=== PATIENT | female | born 1990 | race Caucasian/White ===

== ENCOUNTER 2016-08-05 17:57 | Emergency (ER) | payer OTHER ==
[~2016-08-05 17:57] MED LIST: IBUPROFEN800 MG PO; PERCOCET 325 MG1 TA2 PO; PRENATAL VITAMI1 TA4 PO
--- NOTE | 2016-08-05 18:14 | ED INFLUENZA/URI COMPLAINT ---
History of Present Illness General Chief Complaint: General Adult Stated Complaint: PT 32 WEEKS TESTED POS FOR FLU Source: patient, old records Exam Limitations: no limitations Vital Signs & Intake/Output Vital Signs & Intake/Output Vital Signs Date Time Temp Pulse Resp B/P Pulse O2 O2 Flow FiO2 Ox Delivery Rate 08/05 1930 99.5 16 99 Room Air Room Air 08/05 1919 98.9 08/05 1838 104.0 110 16 114/64 98 Room Air Room Air Allergies Coded Allergies: NO KNOWN ALLERGIES (08/05/16) Reconcile Medications Ibuprofen 800 MG TABLET 800 MG PO Q6P PRN PAIN SCALE 4-6 Ondansetron (Zofran Odt) 4 MG TAB.RAPDIS 1 TAB SL TID PRN nausea OXYCODONE HCL/ACETAMINOPHEN (Percocet 5-325 MG Tablet) 325 MG/5 MG TAB 1 TAB PO Q3P PRN PAIN SCALE 7-10 [id number] ( Vitamins) 1 TAB TAB 1 TAB PO DAILY VITAMIN SUPPORT Triage Nurses Notes Reviewed? yes Onset: Abrupt Duration: day(s): (5), constant Timing: recent history Severity: mild, moderate Severity Numbers: 5 No Modifying Factors: none Associated Symptoms: cough, muscle aches, nasal congestion, nasal drainage, fever HPI: 25-year-old female 32 weeks presents to emergency room sent in by her automatic equipment technician for evaluation. The patient states that diagnosed with the flu 5 days ago and is currently taking Tamiflu. She states that the fevers nausea and vomiting has persisted. The patient denies any abdominal pain vaginal bleeding or discharge. She denies any palpitations to this , she is . her last Dose of Tylenol was yesterday and she presents with a temperature of 104 tympanically. No headache, no urinary symptoms no shortness of breath no chest pain. She reports a nonproductive cough and rhinorrhea congestion. There are no modifying factors or associated symptoms. (DEE DEE SOFIA) Past History Travel History Traveled to [place] past 21 day No Medical History Any Pertinent Medical History? none Surgical History Surgical History: history of PFO dxd at age 15. pt reports seen by test boring crew chief and did not require follow up. Psychosocial History What is your primary language Azeri Family History Hx Contributory? No (DEE DEE SOFIA) Review of Systems Review of Systems Constitutional: Reports: see HPI. All Other Systems: Reviewed and Negative Comments Review of systems: See HPI, All other systems negative. Constitutional, no chills fever, no malaise HEENT: No visual changes no sore throat congestion, no ear pain Cardiovascular: No chest pain , no palpitation Skin, no jaundice no rashes, no change in skin Respiratory: No dyspnea cough no sputum no hemoptysis GI: No nausea no vomiting, no diarrhea, : No dysuria No hematuria, no frequency, no discharge Muscle skeletal: No joint pain, no back pain, no neck pain, Neurologic: No numbness no headache Psych: No stress Heme/endocrine: No bruising no bleeding Immunology: No lymphadenopathy (JENSEN MENDEZ,DEE DEE) Physical Exam Physical Exam General Appearance: well developed/nourished, alert, awake Ears, Nose, Throat: normal ENT inspection, moist mucous membrane, hearing grossly normal, Tympanic normal Comments: Well-developed well-nourished person in no acute distress Head/Face: Atraumatic, no maxillary/frontal sinus tenderness, no facial swelling Eyes: PERRL, EOMI, no conjunctival injection. No nystagmus Ear:External auditory canal and Tympanic membranes clear, no erythema, no FB. Nose: atraumatic.Normal inspection: No bleeding, no septal hematoma Throat: Moist mucous membranes.Pharynx normal. No pharyngeal erythema/exudate seen. No stridor/drooling or assymetry. No swelling or edema. Neck: Supple, no lymphadenopathy, FROM Back: Nontender, no CVA tenderness. Full range of motion Cardiovascular: Regular rate and rhythms no murmurs rubs or gallops, normal JVP Respiratory: Chest nontender.There were no bony deformities, no asymmetry. No respiratory distress. Patient speaking in full complete sentences. Breath sounds clear to auscultation bilaterally: NO W/R/R Abdomen: Soft, nontender nondistended, no appreciable organomegaly. Normal bowel sounds. No rebound/guarding, No appreciable enlargement of the abdominal aorta, No ascites. Extremity: No edema, full range of motion of extremities, normal and equal pulses bilaterally, 5 out of 5 strength noted to bilateral upper and lower extremities Neuro: Alert oriented x3, motor sensory normal, cranial nerves II through XII grossly intact. There were no obvious focal neurologic abnormalities. Skin: No appreciable rash on exposed skin, skin is warm and dry. Psych: Mood and affect is normal, memory and judgment is normal. Core Measures Severe Sepsis Present: No Septic Shock Present: No (DEE DEE SOFIA) Progress Differential Diagnosis: influenza, otitis, pneumonia, pharyngitis, sinusitis, bronchitis, dehydration, uti, pyelo, intrauterine preg Initial ED EKG: none (DEE DEE SOFIA) Plan of Care: Orders Procedure Date/time Status COMPREHENSIVE METABOLIC PANEL 08/05 1823 Complete CBC WITHOUT DIFFERENTIAL 08/05 1823 Complete Laboratory Tests 08/05/16 1853: Anion Gap 16, Estimated GFR > 60, BUN/Creatinine Ratio 7.8, Glucose 81, Calcium 8.4, Total Bilirubin 1.1, AST 25, ALT 26, Alkaline Phosphatase 127 H, Total Protein 6.5, Albumin 3.2 L, Globulin 3.3, Albumin/Globulin Ratio 1.0 L, CBC w Diff NO MAN DIFF REQ, RBC 3.85 L, MCV 80.2 L, MCH 26.8 L, RDW 14.1, MPV 8.8, Gran % 85.5 H, Lymphocytes % 5.4 L, Monocytes % 8.8, Eosinophils % 0, Basophils % 0.3, Absolute Granulocytes 15.5 H, Absolute Lymphocytes 1.0 L, Absolute Monocytes 1.6 H, Absolute Eosinophils 0, Absolute Basophils 0.1, PUBS MCHC 33.5 labs ordered, old records revieweed. pt medicated with tylenol, zofran iv fluids. case d/w dr mcdaniel who evaluated the pt and agrees with plan Bedside ultrasound transabdominally was performed by me. heart tones 160. good movement. 08/05/2016 7:56:15 PM on repeat eval patient is resting comfortable he tolerated by mouth challenge discussed directly over lab results including her elevated white blood cell count. Patient feels improved with 2 L of fluid Tylenol repeat temperature 99.5 tolerating by mouth challenge discussed with her close follow- up as needed with Dr. Hawkins. Advised return anytime sooner for symptoms redevelop or she has any other concerns. They feel comfortable this plan cleared for discharge (DEE DEE SOFIA) Departure Departure Time of Disposition: 1954 Disposition: HOME OR SELF CARE Condition: Stable Clinical Impression Primary Impression: Influenza Secondary Impressions: Referrals: RADHA PAIZ,SUDHAKAR Silva Additional Instructions: Zofran for nausea. Continue taking the Tamiflu as previously directed. Follow- up with your automatic equipment technician this week, bland diet clear liquids advance as tolerated. Return immediately if you have worsening of your symptoms or any other concerns. Tylenol every 8 hours Departure Forms: Customer Survey General Discharge Information Prescriptions: Current Visit Scripts Ondansetron (Zofran Odt) 1 TAB SL TID PRN nausea #10 TAB (DEE DEE SOFIA) PA/ASSOCIATE ART DIRECTOR Co-Sign Statement Statement: ED Attending supervision documentation- [X] I saw and evaluated the patient. I have also reviewed all the pertinent lab results and diagnostic results. I agree with the findings and the plan of care as documented in the PA's/ASSOCIATE ART DIRECTOR's documentation. [] I have reviewed the ED Record and agree with the PA's/ASSOCIATE ART DIRECTOR's documentation. [] Additions or exceptions (if any) to the PAs/ASSOCIATE ART DIRECTOR's note and plan are summarized below: [] (ABIGAIL PAIZ,MORIS García) ED Attending Observation Initial Observation Note: I have seen and personally examined ZULEYMA CASTRO on 08/05/16 at 2002. I agree with the current emergency department documentation. The disposition (admission or discharge) is uncertain at this time, she needs a period of observation for the following reason(s): The ED Nurse caring for this patient has been personally informed as to what the patient is being observed for. (DEE DEE SOFIA)
[2016-08-05 18:39] VITALS: BP 114/64
[2016-08-05 19:08] LABS: ABSOLUTE BASOPHIL COUNT 0.1 /CUMM (0.0-0.2); ABSOLUTE EOSINOPHIL COUNT 0 /CUMM (0.0-0.7); ABSOLUTE GRANULOCYTE CT 15.5 /CUMM (1.4-6.5); ABSOLUTE MONOCYTE COUNT 1.6 /CUMM (0.10-0.60); BASOPHIL % 0.3 % (0.0-2.0); EOSINOPHIL % 0 % (0-5); HEMATOCRIT 30.9 % (37-47); MEAN CORPUSCULAR HGB 26.8 PG (27.0-31.0); MEAN CORPUSCULAR HGB CONC 33.5 G/DL (33.0-37.0); MEAN CORPUSCULAR VOLUME 80.2 FL (81.0-99.0); MEAN PLATELET VOLUME 8.8 FL (7.4-10.4); PLATELET COUNT 201 /CUMM (130-400); RBC DISTRIBUTION WIDTH 14.1 % (11.5-14.5); RED BLOOD CELL CT 3.85 /CUMM (4.20-5.40); WHITE BLOOD CELL COUNT 18.1 /CUMM (4.8-10.8)
[2016-08-05 19:11] LABS: GRANULOCYTE % 85.5 % (42.2-75.2)
[2016-08-05] MEDS ORDERED: ZOFRAN ODT4 M1 SL (19:56)
== END 2016-08-05 20:17 ==
LOC: ERH 17:57
PROVIDERS: Physician Assistant Medical
DX: O99.513 Diseases of the respiratory system complicating pregnancy, third trimester (principal); J11.1 Influenza due to unidentified influenza virus with other respiratory manifestations; Z3A.32 32 weeks gestation of pregnancy
CPT/HCPCS: 96374; 96375; J0131; J2405

== ENCOUNTER 2016-09-08 19:22 | Inpatient (IN) | payer OTHER ==
[~2016-09-08] VITALS: Ht 172.7 cm; Wt 104.3 kg
[~2016-09-08 19:22] MED LIST changes: +ZOFRAN ODT4 M1 SL
[2016-09-08 21:33] LABS: ABSOLUTE BASOPHIL COUNT 0 /CUMM (0.0-0.2); ABSOLUTE EOSINOPHIL COUNT 0 /CUMM (0.0-0.7); ABSOLUTE GRANULOCYTE CT 16.3 /CUMM (1.4-6.5); ABSOLUTE LYMPH COUNT 1.3 /CUMM (1.2-3.4); ABSOLUTE MONOCYTE COUNT 1.1 /CUMM (0.10-0.60); BASOPHIL % 0.1 % (0.0-2.0); EOSINOPHIL % 0.1 % (0-5); HEMATOCRIT 27.4 % (37-47); MEAN CORPUSCULAR HGB 25.8 PG (27.0-31.0); MEAN CORPUSCULAR HGB CONC 32.4 G/DL (33.0-37.0); MEAN CORPUSCULAR VOLUME 79.5 FL (81.0-99.0); MEAN PLATELET VOLUME 8.1 FL (7.4-10.4); PLATELET COUNT 231 /CUMM (130-400); RBC DISTRIBUTION WIDTH 16.2 % (11.5-14.5); RED BLOOD CELL CT 3.44 /CUMM (4.20-5.40); WHITE BLOOD CELL COUNT 18.7 /CUMM (4.8-10.8)
[2016-09-08 21:34] LABS: GRANULOCYTE % 87.3 % (42.2-75.2)
--- NOTE | 2016-09-09 05:34 | Cons- Medical ---
KATHERINE MARTINEZ 09/09/16 0528: General Information and HPI Consulting Request Date of Consult: 09/09/16 Requested By: MALISSA PRADO MD Reason for Consult: Fever Source of Information: patient Exam Limitations: no limitations History of Present Illness: She is 25-year-old woman A2 at 37+4 weeks with past medical history of iron deficiency anemia, history of genital herpes intermittently on Valtrex, recent outbreak 2 months ago. She presented with complaint of nausea, abdominal cramps and back pain for last 2 days. She also reports having fever. MAXIMUM TEMPERATURE 101. She also complains of headache, sore throat and dry cough. She denies any sinus or chest congestion, wheezing, breathing difficulty, chest pain or discomfort, vomiting, diarrhea or constipation. She admits going to bathroom to urinate more frequently but denies any pain or burning upon micturition. She lives with her . Has 2 kids. Does not have any allergies. Surgical history includes only wisdom tooth removal. She denies smoking, drinking alcohol or use of recreational drugs. 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 Allergies/Medications Allergies: Coded Allergies: NO KNOWN ALLERGIES (08/05/16) Home Med List: Ibuprofen 800 MG TABLET 800 MG PO Q6P PRN PAIN SCALE 4-6 Ondansetron (Zofran Odt) 4 MG TAB.RAPDIS 1 TAB SL TID PRN nausea OXYCODONE HCL/ACETAMINOPHEN (Percocet 5-325 MG Tablet) 325 MG/5 MG TAB 1 TAB PO Q3P PRN PAIN SCALE 7-10 [id number] ( Vitamins) 1 TAB TAB 1 TAB PO DAILY VITAMIN SUPPORT Current Medications: Current Medications Sig/Kamala Start time Last Medication Dose Route Stop Time Status Admin Acetaminophen 1,000 MG Q6P PRN 09/09 0300 CAN N/A 1 UNIT IV Acetaminophen 650 MG Q4P PRN 09/09 0130 AC PO Acetaminophen 1,000 MG .STK-MED ONE 09/08 2049 DC IV 09/08 2050 Ampicillin 2,000 MG Q6 09/08 2359 DC 09/08 Sodium Chloride 100 ML IV 2301 Ceftriaxone Sodium 1,000 MG 0800 09/09 0800 AC IV Hydroxyzine HCl 100 MG ONCE ONE 09/08 2245 DC PO 09/08 2246 Lactated Ringer's 1,000 ML Q8H 09/09 0630 AC IV Sodium Chloride 1,000 ML ONCE ONE 09/085 AC 09/08 IV 09/09 0644 2213 Review of Systems Review of Systems Constitutional: Reports: see HPI. 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 pt reports seen by finishing range operator and did not require follow up. Psychosocial History Where Do You Live? Home Services at Home: None Smoking Status: Never Smoked ETOH Use: denies use Illicit Drug Use: denies illicit drug use Functional Ability ADLs Independent: dressing, eating, toileting, bathing. Exam & Diagnostic Data Last 24 Hrs of Vital Signs/I&O none Physical Exam General Appearance: well developed/nourished, no apparent distress, alert, awake , comfortable, Ears, Nose, Throat: normal pharynx Neck: normal inspection Respiratory: normal breath sounds, lungs clear Cardiovascular: tachycardia Gastrointestinal: non-tender, belly Back: normal inspection, CVA tenderness (L) Extremities: no edema Other Physical Findings: Mild dermatitis inner side of upper thigh Last 24 Hrs of Labs/Vitaly: Laboratory Tests 09/09/16 0430: Lactic Acid 0.8 09/08/162119: Anion Gap 9, Estimated GFR > 60, BUN/Creatinine Ratio 10.0, Glucose 146 H, Calcium 8.6, Total Bilirubin 0.4, Direct Bilirubin 0.3, AST 16, ALT 21, Alkaline Phosphatase 110, Total Protein 5.7 L, Albumin 2.7 L, CBC w Diff NO MAN DIFF REQ, RBC 3.44 L, MCV 79.5 L, MCH 25.8 L, RDW 16.2 H, MPV 8.1, Gran % 87.3 H , Lymphocytes % 6.9 L, Monocytes % 5.6, Eosinophils % 0.1, Basophils % 0.1, Absolute Granulocytes 16.3 H, Absolute Lymphocytes 1.3, Absolute Monocytes 1.1 H, Absolute Eosinophils 0, Absolute Basophils 0, PUBS MCHC 32.4 L 09/08/16 194: Urine Color STRAW, Urine Clarity CLEAR, Urine pH 6.5, Ur Specific [place] 1.010, Urine Protein NEG, Urine Ketones 40 H, Urine Nitrite NEG, Urine Bilirubin NEG, Urine Urobilinogen 0.2, Ur Leukocyte Esterase MOD H, Ur Microscopic SEDIMENT EXAMINED, Urine RBC RARE, Urine WBC 5-10 H, Ur Epithelial Cells RARE, Urine Bacteria FEW H, Urine Hemoglobin SMALL H, Urine Glucose NEG Microbiology 09/09 0215 NASOPHARYN: Influenza Virus A & B Rapid Smear - COMP Assessment/Plan Assessment/Plan She is 25-year-old woman A2 at 37+4 weeks with past medical history of iron deficiency anemia, history of genital herpes intermittently on Valtrex, recent outbreak 2 months ago. She was found to be febrile. MAXIMUM TEMPERATURE 100 here in hospital. Pertinent labs are WBC 18.7, H&H 8.9/27.4, sodium 133, potassium 3.4, glucose 146. UAs showing moderate urine leukocyte esterase and 5-10 urine WBCs. In hospital she was given IV fluids and started on ampicillin. Based on history and physical exam it seems like she is having a urinary tract infection and possible pyelonephritis. Plan * Follow vitals closely * Follow-up blood and urine culture * Please start patient on IV ceftriaxone for broader coverage if ok with STEWARD/STEWARDESS ROOM * Tylenol as needed for fever * Get Renal ultrasound to rule out pyelonephritis * Continue IV hydration Problem List: 1. UTI (urinary tract infection) Consult Acknowledgment - Thank you for your consult request. ELIZABET GOLDSTEIN 09/09/16 0612: Assessment/Plan Consult Acknowledgment - Thank you for your consult request. Attending MD Review Statement Attending Statement Attending MD Statement: examined this patient, discuss w/resident/PA/SWITCHBOARD CLERK, agreed w/resident/PA/SWITCHBOARD CLERK, discussed with family, reviewed EMR data (avail), reviewed images, amended to note Attending Assessment/Plan: Patient came for nausea, abdominal cramping, back pain and was being observed. Patient developed fever of 101, tachycardia. ROS is significant for mild cough without sputum production, no chest congestion no URI symptoms mild sore throat, urinary frequency, but no burning or irritation. On examination a O 3, anxious no distress, neck supple, no lymphadenopathy, no pharyngeal congestion, mucosa moist CVS: S1-S2, tachycardia RS: Clear to auscultate bilaterally throughout lung cheung. Abdomen: No significant right upper quadrant tenderness, but patient has left CVA tenderness. No pedal edema, no obvious skin rashes or inflammation, no focal neurological deficit Labs: WBC 18.7 with neutrophils 87%, hemoglobin 8.9. UA positive for moderate leukocyte esterase, few bacteria and WBC. A and P #1 fever : Suspect UTI with pyelonephritis given she has significant leukocytosis, left CVA tenderness, UA suggestive of UTI. Suggest renal ultrasound, an IV ceftriaxone if okay with ST[facility]ARD/STEWARDESS ROOM. Patient's blood culture, urine culture should be sent, obtain LFT, lactic acid, continue IV hydration. Flu test is negative, no obvious pharyngeal congestion, nasal congestion or any lymphadenopathy, chest is clear to auscultate.
[2016-09-09 08:16] VITALS: BP 100/60
--- NOTE | 2016-09-09 11:39 | ULTRASOUND REPORT ---
EXAMINATION: US RETROPERITONEAL COMPLETE (RENAL) CLINICAL INFORMATION: Flank pain and fever at 37 weeks of . COMPARISON: None TECHNIQUE: Real-time imaging of the kidneys and bladder. FINDINGS: RIGHT KIDNEY: 13.2 x 6.1 x 6.7 cm (SAG x AP x TRV). The kidney has normal cortical thickness and echotexture with well-preserved corticomedullary differentiation. No focal parenchymal lesion. Yyxw-ah-brkffsqo hydronephrosis is present without evidence of nephrolithiasis. LEFT KIDNEY: 13.6 x 6.7 x 5.4 cm (SAG x AP x TRV). The kidney has normal cortical thickness and echotexture with well-preserved corticomedullary differentiation. No focal lesion. Ffmf-co-rklntjzw hydronephrosis is present. There is a 0.4 cm calculus of the mid kidney. BLADDER: The dome of the urinary bladder is compressed by the gravid uterus. Both ureteral jets are seen. The heart rate is 122 bpm. IMPRESSION: 1. No sonographic evidence of renal abscess. The corticomedullary differentiation of each kidney is well-preserved. 2. Kxac-wz-zbbhwcvx bilateral hydronephrosis, probably due to compression of each distal ureter by the gravid uterus. 3. Both ureteral jets are seen within the bladder. 4. Nonobstructing 0.4 cm calculus is present within the mid left kidney.
--- NOTE | 2016-09-09 16:17 | History & Physical ---
General Information and HPI MD Statement: I have seen and personally examined ZULEYMA CASTRO and documented this H&P. The patient is a 25 year old female at [37] weeks and 4] days gestation who presented with a chief complaint of [back pain]. Source of Information: patient, old records Exam Limitations: no limitations History of Present Illness: She is 25-year-old woman A2 at 37+4 weeks with past medical history of iron deficiency anemia, history of genital herpes intermittently on Valtrex, recent outbreak 2 months ago.Pt has a Hx. of ER visit earlier in for similar complaints She presented with complaint of nausea, abdominal cramps and back pain for last 2 days. She also reports having fever. MAXIMUM TEMPERATURE 101. She also complains of headache, sore throat and dry cough. Allergies/Medications Allergies: Coded Allergies: NO KNOWN ALLERGIES (08/05/16) Home Med list Ibuprofen 800 MG TABLET 800 MG PO Q6P PRN PAIN SCALE 4-6 Ondansetron (Zofran Odt) 4 MG TAB.RAPDIS 1 TAB SL TID PRN nausea OXYCODONE HCL/ACETAMINOPHEN (Percocet 5-325 MG Tablet) 325 MG/5 MG TAB 1 TAB PO Q3P PRN PAIN SCALE 7-10 [id number] ( Vitamins) 1 TAB TAB 1 TAB PO DAILY VITAMIN SUPPORT Past History monogram technician History : 5 Para: 2 Last Menstrual Period: 12/21/2015 Estimated Delivery Date: 09/26/2016 Past monogram technician History: none, uncomplicated Past Pregnancies Past Pregnancies: 1 Date of Delivery: 01/2010 Gestational Age: 40 Length of Labor: 4h Weight: 7#13oz Type of Delivery: vaginal () Anesthesia: epidural Place of Delivery: [facility] Complications: none Past Pregnancies: 2 Date of Delivery: 01/03/2015 Gestational Age: 40 Length of Labor: 10h Weight: 9#5oz Type of Delivery: vaginal () Anesthesia: epidural Place of Delivery: [facility] Complications: none Medical History Blood 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 pt reports seen by staff mechanical engineer and did not require follow up. Past Family/Social History Psychosocial History Where do you live? Home Who Do You Live With? spouse Smoking Status: Never Smoked ETOH Use: denies use Illicit Drug Use: denies illicit drug use Review of Systems Review of Systems Constitutional: Reports: chills, fever, malaise. EENTM: Reports: no symptoms. Cardiovascular: Reports: no symptoms. Respiratory: Reports: no symptoms. Genitourinary: Reports: frequency, urgency. Exam & Diagnostic Data Last 24 Hrs of Vital Signs/I&O Vital Signs Date Time Temp Pulse Resp B/P Pulse O2 O2 Flow FiO2 Ox Delivery Rate 09/09 1236 100.9 09/09 1010 98.0 09/09 0816 100/60 09/09 0130 100.5 Intake & Output 09/09 1600 09/09 0800 09/09 0000 Intake Total Output Total Balance Patient 230 lb Weight Obstetric Exam Wgt Gained During : 20 Pelvimetry: ok Dilation (cm): 1 Effacement (%): 50 Station: -3 Membranes: intact Fluid: unknown Fundal Height (cm): 37 Multiple Gestation? No Contractions: none Patient for Induction? No Physical Exam General Appearance Alert, Oriented X3, Cooperative, Mild Distress Skin No Rashes HEENT Atraumatic, PERRLA, EOMI, Mucous Membr. moist/pink Neck Supple Cardiovascular Regular Rate Lungs Clear to Auscultation Abdomen Normal Bowel Sounds, Soft, No Tenderness (bilateral CVAT L>R) Neurological Normal Gait, Normal Speech Labs Blood Type & Rh: O+ Antibody Screen: neg Hct/Hgb & Platelets #1: 8.9/27.4/231 Hct/Hgb & Platelets #2: pending Rubella: imm VDRL #1: nr VDRL #2: nr HbsAg: nr HIV #1: nr HIV #2 nr 1 Hr PG: wnl Group B Strep: pending Initial Ultrasound: 02/27/2016 Anatomy Ultrasound: 05/20/2016 Genetic Testing: cf neg Last 24 Hrs of Labs/Vitaly: Tmax 101.9 temp 100.9 BP 100/58 Laboratory Tests 09/09/16 0430: Lactic Acid 0.8 09/08/16 2120: Anion Gap 9, Estimated GFR > 60, BUN/Creatinine Ratio 10.0, Glucose 146 H, Calcium 8.6, Total Bilirubin 0.4, Direct Bilirubin 0.3, AST 16, ALT 21, Alkaline Phosphatase 110, Total Protein 5.7 L, Albumin 2.7 L, CBC w Diff NO MAN DIFF REQ, RBC 3.44 L, MCV 79.5 L, MCH 25.8 L, RDW 16.2 H, MPV 8.1, Gran % 87.3 H , Lymphocytes % 6.9 L, Monocytes % 5.6, Eosinophils % 0.1, Basophils % 0.1, Absolute Granulocytes 16.3 H, Absolute Lymphocytes 1.3, Absolute Monocytes 1.1 H, Absolute Eosinophils 0, Absolute Basophils 0, PUBS MCHC 32.4 L 09/08/161944: Urine Color STRAW, Urine Clarity CLEAR, Urine pH 6.5, Ur Specific [place] 1.010, Urine Protein NEG, Urine Ketones 40 H, Urine Nitrite NEG, Urine Bilirubin NEG, Urine Urobilinogen 0.2, Ur Leukocyte Esterase MOD H, Ur Microscopic SEDIMENT EXAMINED, Urine RBC RARE, Urine WBC 5-10 H, Ur Epithelial Cells RARE, Urine Bacteria FEW H, Urine Hemoglobin SMALL H, Urine Glucose NEG Microbiology 09/09 0215 NASOPHARYN: Influenza Virus A & B Rapid Smear - COMP 09/08 2244 BLOOD: Blood Culture - RES GRAM NEGATIVE RODS 09/08 2229 BLOOD: Blood Culture - RES 09/08 1944 URINE ROUT: Urine Culture - RES GRAM NEGATIVE RODS Assessment/Plan Assessment/Plan: pt with pyleonephritis us shows small 4mm left calculus no abscess bilateral mod hydronephrosis. urine + 100k GNR Blood + GNR first Lactic acid 0.8 influenza negative As Ranked By This Provider Problem List: 1. 2. UTI (urinary tract infection) Core Measures/Miscellaneous Venous Thromboembolism VTE Risk Factors: / VTE Contraindications: No Contraindications VTE Prophylaxis Ordered Inpt: Early Ambulation VTE Diagnosis: No Beta Ramses Is Beta Ramses a Home Med? No Antibiotics Is Patient on Antibiotics? Yes Attending MD Review Statement Attending Statement Attending MD Statement: examined this patient, discussed with family, discussed w/nursing Attending Assessment/Plan: Pylo positive BC X1 GNR ATU consult recommends iv abx till afebrile x 48 hours then PO x 2 weeks medicine consult ID consult
--- NOTE | 2016-09-09 18:03 | PN- Att Addend ---
Attending Addendum Attending Brief Note S: Patient does note some left flank pain. No h/o UTI's. Still with fever. O: VS: Vital Signs Date Time Temp Pulse Resp B/P Pulse O2 O2 Flow FiO2 Ox Delivery Rate 09/09 1642 100.5 09/09 1236 100.9 09/09 1010 98.0 09/09 0816 100/60 09/09 0130 100.5 Intake & Output 09/09 1600 09/09 0800 09/09 0000 Intake Total Output Total Balance Patient 104.326 kg Weight Current Medications Sig/Kamala Start time Last Medication Dose Route Stop Time Status Admin Acetaminophen 1,000 MG Q6P PRN 09/09 0300 CAN N/A 1 UNIT IV Acetaminophen 650 MG Q4P PRN 09/09 0130 AC 09/09 PO 1642 Acetaminophen 1,000 MG .STK-MED ONE 09/08 2050 DC IV 09/08 2051 Ampicillin 2,000 MG Q6 09/08 2359 DC 09/08 Sodium Chloride 100 ML IV 2301 Ceftriaxone Sodium 1,000 MG 0800 09/09 0800 AC 09/09 IV 0804 Hydroxyzine HCl 100 MG ONCE ONE 09/08 2245 DC PO 09/08 2246 Lactated Ringer's 1,000 ML Q8H 09/09 0630 DC 09/09 IV 0733 Sodium Chloride 1,000 ML Q6H 09/09 1600 AC 09/09 IV 1630 Sodium Chloride 1,000 ML ONCE ONE 09/08 2245 DC 09/08 IV 09/09 0644 2213 Valacyclovir HCl 500 MG DAILY 09/09 1001 AC 09/09 PO 1137 Physical Exam: Chest: clear Cor: RRR, nl S1, S2 w/o murm Abd: , ?left CVAT Ext: no sig edema Labs: Laboratory Tests 09/09/16 1638: Lactic Acid 1.2 09/09/16 0430: Lactic Acid 0.8 09/08/16 2120: Anion Gap 9, Estimated GFR > 60, BUN/Creatinine Ratio 10.0, Glucose 146 H, Calcium 8.6, Total Bilirubin 0.4, Direct Bilirubin 0.3, AST 16, ALT 21, Alkaline Phosphatase 110, Total Protein 5.7 L, Albumin 2.7 L, CBC w Diff NO MAN DIFF REQ, RBC 3.44 L, MCV 79.5 L, MCH 25.8 L, RDW 16.2 H, MPV 8.1, Gran % 87.3 H , Lymphocytes % 6.9 L, Monocytes % 5.6, Eosinophils % 0.1, Basophils % 0.1, Absolute Granulocytes 16.3 H, Absolute Lymphocytes 1.3, Absolute Monocytes 1.1 H, Absolute Eosinophils 0, Absolute Basophils 0, PUBS MCHC 32.4 L 09/08/161944: Urine Color STRAW, Urine Clarity CLEAR, Urine pH 6.5, Ur Specific [place] 1.010, Urine Protein NEG, Urine Ketones 40 H, Urine Nitrite NEG, Urine Bilirubin NEG, Urine Urobilinogen 0.2, Ur Leukocyte Esterase MOD H, Ur Microscopic SEDIMENT EXAMINED, Urine RBC RARE, Urine WBC 5-10 H, Ur Epithelial Cells RARE, Urine Bacteria FEW H, Urine Hemoglobin SMALL H, Urine Glucose NEG Microbiology 09/09 214 NASOPHARYN: Influenza Virus A & B Rapid Smear - COMP Microbiology Date/Time Procedure - Status Source Growth 09/09 214 Influenza Virus A & B Rapid Smear - COMP NASOPHARYN 09/08 2244 Blood Culture - RES BLOOD GRAM NEGATIVE RODS 09/08 2229 Blood Culture - RES BLOOD 09/08 1944 Urine Culture - RES URINE ROUT GRAM NEGATIVE RODS Renal US: IMPRESSION: 1. No sonographic evidence of renal abscess. The corticomedullary differentiation of each kidney is well-preserved. 2. [id number] bilateral hydronephrosis, probably due to compression of each distal ureter by the gravid uterus. 3. Both ureteral jets are seen within the bladder. 4. Nonobstructing 0.4 cm calculus is present within the mid left kidney. Impression/Plan: #UTI with Sepsis of Urologic Origin- lactate level normal. GNR's in blood and urine (>100K). Patient on Ceftriaxone. No h/o UTI's previously. No evidence of pyelonephritis on US. Some compression of ureters by gravid uterus noted. Plan: Continue Ceftriaxone. Await final culture results. Continue hydration.
[2016-09-10 06:29] LABS: ABSOLUTE BASOPHIL COUNT 0 /CUMM (0.0-0.2); ABSOLUTE EOSINOPHIL COUNT 0.1 /CUMM (0.0-0.7); ABSOLUTE GRANULOCYTE CT 14.8 /CUMM (1.4-6.5); ABSOLUTE LYMPH COUNT 1.8 /CUMM (1.2-3.4); ABSOLUTE MONOCYTE COUNT 1.3 /CUMM (0.10-0.60); BASOPHIL % 0.2 % (0.0-2.0); EOSINOPHIL % 0.4 % (0-5); GRANULOCYTE % 82.2 % (42.2-75.2); HEMATOCRIT 25.8 % (37-47); MEAN CORPUSCULAR HGB 26.1 PG (27.0-31.0); MEAN CORPUSCULAR HGB CONC 32.9 G/DL (33.0-37.0); MEAN CORPUSCULAR VOLUME 79.5 FL (81.0-99.0); MEAN PLATELET VOLUME 8.3 FL (7.4-10.4); PLATELET COUNT 214 /CUMM (130-400); RED BLOOD CELL CT 3.25 /CUMM (4.20-5.40)
--- NOTE | 2016-09-10 08:00 | PN- Medicine Consult ---
See Addendum NAFISA MORRISON 09/10/16 0759: Assessment/Plan Assessment/Plan Assessment: 25-year-old woman A2 at 37+4 weeks with past medical history of iron deficiency anemia, history of genital herpes intermittently on Valtrex, recent outbreak 2 months ago. She presented with complaint of nausea, abdominal cramps and back pain with fevers, currently being treated for UTI. Plan: # UTI with sepsis of urological origin - Patient is defervescing, and her WBC count has iomproved. - Continue Ceftraixone pending sensitivities of Blood and urine cultures. - Will switch to oral meds subsequently, (most likely amoxicllin if sensitive to it). Subjective Subjective: Patient seen and examined at the bedside. She has some left flank taht she grades as a 2/10, and her Tmax was 100.3F @ 10:00pm last night , but states she feels much better. No other complaints Review of Systems Constitutional: Denies: chills, fever. EENTM: Denies: visual changes. Cardiovascular: Denies: chest pain, palpitations, peripheral edema. Respiratory: Denies: cough, short of breath. Gastrointestinal: Denies: abdominal pain, nausea, vomiting. Genitourinary: Reports: see HPI. Neurological/Psychological: Denies: headache, numbness, tingling, tremors. Objective Last 24 Hrs of Vital Signs/I&O Vital Signs Date Time Temp Pulse Resp B/P Pulse O2 O2 Flow FiO2 Ox Delivery Rate 09/09 2141 100.3 09/09 2040 101.3 09/09 1642 100.5 09/09 1236 100.9 09/09 1010 98.0 09/09 0816 100/60 Physical Exam General Appearance: well developed/nourished, no apparent distress, alert, awake Head: atraumatic, normal appearance Ears, Nose, Throat: normal pharynx Neck: normal inspection, supple Cardiovascular: regular rate/rhythm Respiratory: normal breath sounds, chest non-tender, no respiratory distress, quiet respiration, lungs clear Abdomen: normal bowel sounds, non-tender, Neurologic/Psychiatric: no motor/sensory deficits, awake, alert, oriented x 3 Current Medications: Current Medications Sig/Kamala Start time Last Medication Dose Route Stop Time Status Admin Acetaminophen 650 MG Q4P PRN 09/09 0130 AC 09/10 PO 0202 Ceftriaxone Sodium 1,000 MG 0800 09/09 0800 AC 09/10 IV 0807 Lactated Ringer's 1,000 ML Q8H 09/09 0630 DC 09/09 IV 0733 Sodium Chloride 1,000 ML Q6H 09/09 1600 AC 09/10 IV 0607 Valacyclovir HCl 500 MG DAILY 09/09 1001 AC 09/10 PO 0807 Results Last 24 Hrs Lab/Vitaly Results: Laboratory Tests 09/10/16 0600: CBC w Diff NO MAN DIFF REQ, RBC 3.25 L, MCV 79.5 L, MCH 26.1 L, RDW 17.0 H, MPV 8.3, Gran % 82.2 H, Lymphocytes % 10.0 L, Monocytes % 7.2, Eosinophils % 0.4, Basophils % 0.2, Absolute Granulocytes 14.8 H, Absolute Lymphocytes 1.8, Absolute Monocytes 1.3 H, Absolute Eosinophils 0.1, Absolute Basophils 0, PUBS MCHC 32.9 L 09/09/16 1900: Lactic Acid Cancelled 09/09/16 1638: Lactic Acid 1.2 Recent Imaging Studies: US Kidney: IMPRESSION: 1. No sonographic evidence of renal abscess. The corticomedullary differentiation of each kidney is well-preserved. 2. Wqoz-am-aokewdal bilateral hydronephrosis, probably due to compression of each distal ureter by the gravid uterus. 3. Both ureteral jets are seen within the bladder. 4. Nonobstructing 0.4 cm calculus is present within the mid left kidney. LETY LARA MD 09/10/16 1258: Attending MD Review Statement Attending Sign Off Attending Cosign Statement: I have: examined this patient, reviewed [facility] EMR data, personally reviewd images, discussd w/resident/PA/RECREATION THERAPY TEACHER, discussed mgmt plan w/faisal, discussed mgmt plan w/pt, agreed w/resident/PA/RECREATION THERAPY TEACHER, amended to note. Other Findings: The patient was seen and discussed with house staff. Will need 14 days total of antibiotic. Await ID and sensitivities of GNR.
--- NOTE | 2016-09-10 13:53 | PN- OBGYN ---
Surgical Brief Attending Note Brief Attending Note: S; Pt looks clinically better- states much less LT sided back pain. NO srom, contractions or vaginal bleeding - ++ GFM T Max (20:00 on 09/09/2016) 101.2 T @ noon today 97,7 VSS Ch clear C RRR Abd: benign nontender no HSM Uterus gravid nontender no palp contractions FHR: 140's Reactive NST Back 2+ LT CVAT NO RT CVAT WBC 18,000 h/h 8.5/25.8 plts 214,000 H/H 1st trim was 12.2/38.5 H/H@ jul 22, 2016 (30 wks) was 10.5/35 Urine c/s E Coli sens to CEFAZOLIN, AMPICILLIN A.) Improving pyelonephritis - urine C/S was + E Coli - sens to cephazolin and ampicillin will change IV antibiotic to cefazolin. Pt will need 48 hrs afebrile until we change from IV to PO antibiotic rx Lower H/H is likely due to her current pyelonephritis - hemolysis can be seen in this OB setting - will rx iron for her. TC to ATU once daily NST are fine for the baby - then just FHR q shift Nedra Marmolejo MD
--- NOTE | 2016-09-11 07:35 | PN- Medicine Consult ---
PRINCENAFISA 09/11/16 0729: Assessment/Plan Assessment/Plan Assessment: 25-year-old woman A2 at 37+4 weeks with past medical history of iron deficiency anemia, history of genital herpes intermittently on Valtrex, recent outbreak 2 months ago. She presented with complaint of nausea, abdominal cramps and back pain with fevers, currently being treated for UTI. Plan: # UTI with sepsis of urological origin - Patient denies any fevers overnight. No vitals recorded within past 24 hrs, to suggest that she is afebrile. - In lieu of sensitivities she is growing E. Coli suscpetible to Amocillin. - Agree with switching to Cefazolin (Day # 3 of Abx). - Will switch to amoxicillin orally, for a total of 14 days. Subjective Subjective: Patient see and examined at bedside. She has no active complaints. No labs today dna vitals not documented within the past 24 hrs. However, patient denies fevers. Review of Systems Constitutional: Denies: chills, fever. EENTM: Denies: visual changes. Cardiovascular: Denies: chest pain, palpitations. Respiratory: Denies: cough, short of breath, sputum production. Gastrointestinal: Reports: no symptoms. Denies: abdominal pain, nausea, vomiting. Genitourinary: Reports: no symptoms. Musculoskeletal: Reports: no symptoms. Neurological/Psychological: Denies: headache, numbness, tingling, tremors. Objective Last 24 Hrs of Vital Signs/I&O None avaliable. Physical Exam General Appearance: well developed/nourished, no apparent distress, alert, awake Head: atraumatic, normal appearance Neck: normal inspection, supple Cardiovascular: regular rate/rhythm Respiratory: normal breath sounds, chest non-tender, no respiratory distress, quiet respiration, lungs clear Abdomen: normal bowel sounds, soft, Back: no CVA tenderness Extremities: normal inspection, normal capillary refill, normal range of motion, no edema Neurologic/Psychiatric: no motor/sensory deficits, awake, alert, oriented x 3, normal mood/affect Current Medications: Current Medications Sig/Kamala Start time Last Medication Dose Route Stop Time Status Admin Acetaminophen 650 MG Q4P PRN 09/09 0130 AC 09/11 PO 0431 Cefazolin Sodium 1,000 MG IQ8 09/10 1600 AC 09/10 IV 2348 Ceftriaxone Sodium 1,000 MG 0800 09/09 0800 DC 09/10 IV 0807 Docusate Sodium 100 MG DAILY 09/10 1403 AC 09/10 PO 1416 Ferrous Sulfate 325 MG BID 09/10 1403 AC 09/10 PO 1814 Sodium Chloride 1,000 ML Q6H 09/09 1600 DC 09/10 IV 0607 Valacyclovir HCl 500 MG DAILY 09/09 1001 AC 09/10 PO 0807 Results Last 24 Hrs Lab/Vitaly Results: Laboratory Tests 09/10 09/09 09/09 0600 1900 1638 Chemistry Lactic Acid (0.7 - 2.1 mmol/L) Cancelled 1.2 Hematology CBC w Diff NO MAN DIFF REQ WBC (4.8 - 10.8 /CUMM) 18.0 H RBC (4.20 - 5.40 /CUMM) 3.25 L Hgb (12.0 - 16.0 G/DL) 8.5 L Hct (37 - 47 %) 25.8 L MCV (81.0 - 99.0 FL) 79.5 L MCH (27.0 - 31.0 PG) 26.1 L RDW (11.5 - 14.5 %) 17.0 H Plt Count (130 - 400 /CUMM) 214 MPV (7.4 - 10.4 FL) 8.3 Gran % (42.2 - 75.2 %) 82.2 H Lymphocytes % (20.5 - 51.1 %) 10.0 L Monocytes % (1.7 - 9.3 %) 7.2 Eosinophils % (0 - 5 %) 0.4 Basophils % (0.0 - 2.0 %) 0.2 Absolute Granulocytes (1.4 - 6.5 /CUMM) 14.8 H Absolute Lymphocytes (1.2 - 3.4 /CUMM) 1.8 Absolute Monocytes (0.10 - 0.60 /CUMM) 1.3 H Absolute Eosinophils (0.0 - 0.7 /CUMM) 0.1 Absolute Basophils (0.0 - 0.2 /CUMM) 0 PUBS MCHC (33.0 - 37.0 G/DL) 32.9 L LETY LARA MD 09/11/16 4446: Attending MD Review Statement Attending Sign Off Attending Cosign Statement: I have: examined this patient, reviewed avalbl EMR data, discussd w/resident/PA/ [employer]SM[employer], discussed mgmt plan w/pt, agreed w/resident/PA/[employer] DRAFTSMAN, amended to note. Other Findings: The patient was seen and discussed with housestaff. Agree with plan of care as outlined. Will transition to po Amoxicillin as planned. Total 14 day course of Abx.
--- NOTE | 2016-09-11 10:45 | PN- OBGYN ---
Surgical Brief Attending Note Brief Attending Note: 25 YEAR OLD @ 37+6 WEEKS ADMITTED WITH PYELONEPHRITIS. PT REPORTS DOING WELL. REPORTS OCC HEADACHE. BACK PAIN RESOLVED. DENIES FEVERS /CHILLS/ SOB / CP. PER NURSING, LAST FEVER WAS 101 ON 09/09/16. +GFM. DENIES VAG BLEEDING OR LOSS OF FLUID. + OCC CONTRACTIONS VS: @ 1040 THIS AM: T97.3, BP116/60, P94,O2SAT 100% RA, R16 LAST TEMP >100.4 WAS 2039 ON 09/09/16 101.3 SEE HARD CHART FOR 09/10/16 AND 09/11/16 VITALS (ALL TEMPS <100.4) 09/09/16: 100.5 @ 1642 : 101.3 @ 2039 : 100.3 @ 214 CHEST: SLIGHTLY DECREASED BS B/L BASES, OTW CTA, HEART: RRR ABDOMEN: SOFT, GRAVID, NONTENDER, NST IN PROGRESS FHTS: 120S , REACTIVE, CAT 1. TOCO: NOT WORKING HOWEVER NO C/O CONTRACTIONS AT PRESENT CVX : DEFERRED Laboratory Tests 09/10/16 0600: CBC w Diff NO MAN DIFF REQ, RBC 3.25 L, MCV 79.5 L, MCH 26.1 L, RDW 17.0 H, MPV 8.3, Gran % 82.2 H, Lymphocytes % 10.0 L, Monocytes % 7.2, Eosinophils % 0.4, Basophils % 0.2, Absolute Granulocytes 14.8 H, Absolute Lymphocytes 1.8, Absolute Monocytes 1.3 H, Absolute Eosinophils 0.1, Absolute Basophils 0, PUBS MCHC 32.9 L 09/09/16 1900: Lactic Acid Cancelled 09/09/16 1638: Lactic Acid 1.2 09/09/16 0430: Lactic Acid 0.8 09/08/16 2120: Anion Gap 9, Estimated GFR > 60, BUN/Creatinine Ratio 10.0, Glucose 146 H, Calcium 8.6, Total Bilirubin 0.4, Direct Bilirubin 0.3, AST 16, ALT 21, Alkaline Phosphatase 110, Total Protein 5.7 L, Albumin 2.7 L, CBC w Diff NO MAN DIFF REQ, RBC 3.44 L, MCV 79.5 L, MCH 25.8 L, RDW 16.2 H, MPV 8.1, Gran % 87.3 H , Lymphocytes % 6.9 L, Monocytes % 5.6, Eosinophils % 0.1, Basophils % 0.1, Absolute Granulocytes 16.3 H, Absolute Lymphocytes 1.3, Absolute Monocytes 1.1 H, Absolute Eosinophils 0, Absolute Basophils 0, PUBS MCHC 32.4 L 09/08/161944: Urine Color STRAW, Urine Clarity CLEAR, Urine pH 6.5, Ur Specific [place] 1.010, Urine Protein NEG, Urine Ketones 40 H, Urine Nitrite NEG, Urine Bilirubin NEG, Urine Urobilinogen 0.2, Ur Leukocyte Esterase MOD H, Ur Microscopic SEDIMENT EXAMINED, Urine RBC RARE, Urine WBC 5-10 H, Ur Epithelial Cells RARE, Urine Bacteria FEW H, Urine Hemoglobin SMALL H, Urine Glucose NEG Microbiology 09/09 214 NASOPHARYN: Influenza Virus A & B Rapid Smear - COMP 09/08 2244 BLOOD: Blood Culture - COMP ESCHERICHIA COLI 09/08 2229 BLOOD: Blood Culture - RES 09/08 1944 URINE ROUT: Urine Culture - COMP ESCHERICHIA COLI Vital Signs Result Date Time Temp 100.3 09/09 2141 B/P 100/60 09/09 0816 A/P 25 YEAR OLD @ 37+6 WEEKS ADMITTED WITH PYELONEPHRITIS. CLINICALLY IMPROVED. 1.+E.COLI URINE CULTURE. +GNR BLOOD CX. AWAITING ID AND SENSITIVITIES. ON KEFZOL IV. WILL BE 48 HOURS AFEBRILE AT 8PM AT WHICH TIME WILL SWITCH TO ORAL AMOXICILLIN PER MEDICINE RECOMMENDATIONS. ANTICIPATE DC IN AM. 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 CONTINUE VALTREX PROPHYLAXIS 3.ANEMIA . CONTINUE IRON 4. AWAIT CBC, F/U ON BLOOD CX
[2016-09-11 12:49] LABS: ABSOLUTE BASOPHIL COUNT 0 /CUMM (0.0-0.2); ABSOLUTE EOSINOPHIL COUNT 0.1 /CUMM (0.0-0.7); ABSOLUTE GRANULOCYTE CT 7.1 /CUMM (1.4-6.5); ABSOLUTE LYMPH COUNT 1.8 /CUMM (1.2-3.4); ABSOLUTE MONOCYTE COUNT 0.7 /CUMM (0.10-0.60); BASOPHIL % 0.4 % (0.0-2.0); EOSINOPHIL % 1.2 % (0-5); GRANULOCYTE % 72.7 % (42.2-75.2); HEMATOCRIT 27.3 % (37-47); MEAN CORPUSCULAR HGB 26.4 PG (27.0-31.0); MEAN CORPUSCULAR HGB CONC 33.4 G/DL (33.0-37.0); MEAN PLATELET VOLUME 8.1 FL (7.4-10.4); PLATELET COUNT 245 /CUMM (130-400); RBC DISTRIBUTION WIDTH 17.1 % (11.5-14.5); RED BLOOD CELL CT 3.46 /CUMM (4.20-5.40); WHITE BLOOD CELL COUNT 9.8 /CUMM (4.8-10.8)
[2016-09-12] MEDS ORDERED: AMOXICILLIN500 M2 PO (08:47)
[2016-09-12] MEDS ORDERED: FERROUS SULFAT325 M2 PO (08:47)
--- NOTE | 2016-09-12 09:08 | PN- OBGYN ---
Subjective Subjective: feling fine no fever or chills just some nausea no vomiting Review of Systems Constitutional: Denies: chills, fever. EENTM: Denies: blurred vision, double vision, visual changes. Cardiovascular: Denies: chest pain. Respiratory: Denies: cough, short of breath. Gastrointestinal: Reports: nausea. Denies: diarrhea, vomiting. Genitourinary: Denies: dysuria, frequency, hematuria. Neurological/Psychological: Denies: anxiety, depressed. Objective Last 24 Hrs of Vital Signs/I&O vss afebrile x24 hours Physical Exam General Appearance Alert, Oriented X3, Cooperative, No Acute Distress Cardiovascular Regular Rate Lungs Clear to Auscultation Abdomen Soft Obstetric Exam Dilation (cm): 0 Effacement (%): 0 Station: 2 Membranes: intact Fluid: unknown Multiple Gestation? No Contractions: none #1 - FHR Baseline: 144 Category: 1 Estimated Weight: 3700 Presentation: vtx Current Medications: Current Medications Sig/Kamala Start time Last Medication Dose Route Stop Time Status Admin Acetaminophen 650 MG .STK-MED ONE 09/11 1009 DC PO 09/11 1010 Acetaminophen 650 MG Q4P PRN 09/09 0130 AC 09/11 PO 1017 Amoxicillin 500 MG TID 09/12 0000 AC 09/12 PO 0903 Cefazolin Sodium 1,000 MG IQ8 09/10 1600 DC 09/11 IV 1632 Docusate Sodium 100 MG .STK-MED ONE 09/11 1009 DC PO 09/11 1010 Docusate Sodium 100 MG DAILY 09/10 1403 AC 09/12 PO 0903 Ferrous Sulfate 325 MG BID 09/10 1403 AC 09/12 PO 0903 Valacyclovir HCl 500 MG DAILY 09/09 1001 AC 09/12 PO 0904 Last 24 Hrs of Labs/Vitaly: Laboratory Tests 09/11/16 1230: CBC w Diff NO MAN DIFF REQ, RBC 3.46 L, MCV 79.0 L, MCH 26.4 L, RDW 17.1 H, MPV 8.1, Gran % 72.7, Lymphocytes % 18.6 L, Monocytes % 7.1, Eosinophils % 1.2, Basophils % 0.4, Absolute Granulocytes 7.1 H, Absolute Lymphocytes 1.8, Absolute Monocytes 0.7 H, Absolute Eosinophils 0.1, Absolute Basophils 0, PUBS MCHC 33.4 Assessment/Plan Assessment/Plan pylonephritis resolved iup a 38 weeks Problem List: 1. UTI (urinary tract infection) 2. Attending MD Review Statement Attending Statement Attending MD Statement: examined this patient, discussed with family, discussed w/nursing
--- NOTE | 2016-09-16 09:42 | Surgical Discharge Summary ---
Visit Information Visit Dates Admission Date: 09/09/16 Discharge Date: 09/12/16 History of Present Illness Chief Complaint: back pain and fever Medical History Blood Disorders: anemia [employer]/Reproductive: genital herpes Surgical History Pertinent Surgical History: history of PFO dxd at age 15. pt reports seen by drying rack changer and did not require follow up. Psychosocial History Where Do You Live? Home Services at Home: None What is Your Primary Language? Mongolian ETOH Use: denies use Review of Systems: Patient denies nausea, vomiting, diarrhea, constipation, fevers, or chills. Hospital Course Course Attending Physician: TOBI PAIZ,MICKY Calderon Primary Care Physician: PATIENT HAS NO PRIMARY CARE DR Hospital Course: Patient was admitted to the childbirth center with diagnosis of pyelonephritis and started on antibiotics and intravenous hydration NST showed the patient not to be in labor and the baby's condition to be good systolic examination showed 1 small kidney stone lateral hydronephrosis and no abscess or obstruction during culture came back positive for Escherichia coli as did one blood culture her lactic acid was normal antibiotics continued until she was afebrile 48 hours she was discharged home on oral antibiotics Allergies: Coded Allergies: NO KNOWN ALLERGIES (08/05/16) Disposition Summary Disposition Principal Diagnosis: Pyelonephritis Additional Diagnosis: Intrauterine at 38 weeks Discharge Disposition: home or self care Discharge Instructions General Discharge Information Code Status: Full Code Patient's Diet: Regular diet Patient's Activity: Normal activity Follow-Up Instructions/Appts: Follow-up immediately for any fevers chills or abdominal pain or back pain report any decreased movement immediately Medications at Discharge Discharge Medications: Stop taking the following medications: OXYCODONE HCL/ACETAMINOPHEN (Percocet 5-325 MG Tablet) 325 MG/5 MG TAB ORAL EVERY 3 HOURS NEEDED as needed for PAIN SCALE 7-10 Qty = 60 Continue taking these medications: Ibuprofen (Ibuprofen) 800 MG TABLET 800 Milligram ORAL EVERY SIX HOURS NEEDED as needed for PAIN SCALE 4-6 Qty = 60 [id number] ( Vitamins) 1 TAB TAB 1 Tablet ORAL DAILY Qty = 90 Ondansetron (Zofran Odt) 4 MG TAB.RAPDIS 1 Tablet SUBLINGUAL THREE TIMES DAILY as needed for nausea Qty = 10 Start taking the following new medications: Amoxicillin (Amoxicillin) 500 MG CAPSULE 500 Milligram ORAL THREE TIMES DAILY Days = 14 No Refills Comments: Last Taken:09/12/16 Time:0900 Ferrous Sulfate (Ferrous Sulfate) 325 MG (65 MG IRON) TABLET.DR 325 Milligram ORAL TWICE DAILY Qty = 90 No Refills Comments: Last Taken:09/12/16 Time:0900 Attending MD Review Statement Attending Statement Attending MD Statement: examined this patient, discussed with family, discussed w/nursing
== END 2016-09-12 09:39 | DRG 781 ==
LOC: CBCO 19:22 → GNO 22:15
PROVIDERS: Obstetrics & Gynecology; ADMIT Obstetrics & Gynecology
DX: O23.03 Infections of kidney in pregnancy, third trimester (principal); B96.20 Unspecified Escherichia coli [E. coli] as the cause of diseases classified elsewhere; N13.6 Pyonephrosis; Z3A.37 37 weeks gestation of pregnancy
CPT/HCPCS: GNOS; 36415; 76775; 81001; 87040; 87086; 87804; 87804-59; 96360; G0378; G0463; J0131; J0290; J0690; J0696; J3490; J7120

== ENCOUNTER 2016-09-18 04:37 | Inpatient (IN) | payer OTHER ==
[~2016-09-18] VITALS: Ht 172.7 cm; Wt 88.5 kg
[~2016-09-18 04:37] MED LIST changes: +AMOXICILLIN500 M2 PO; +FERROUS SULFAT325 M2 PO
[2016-09-18 05:49] LABS: ABSOLUTE BASOPHIL COUNT 0 /CUMM (0.0-0.2); ABSOLUTE EOSINOPHIL COUNT 0.1 /CUMM (0.0-0.7); ABSOLUTE GRANULOCYTE CT 7.8 /CUMM (1.4-6.5); ABSOLUTE LYMPH COUNT 4.8 /CUMM (1.2-3.4); ABSOLUTE MONOCYTE COUNT 0.5 /CUMM (0.10-0.60); BASOPHIL % 0.3 % (0.0-2.0); EOSINOPHIL % 0.8 % (0-5); GRANULOCYTE % 58.9 % (42.2-75.2); MEAN CORPUSCULAR HGB 25.6 PG (27.0-31.0); MEAN CORPUSCULAR HGB CONC 32.5 G/DL (33.0-37.0); MEAN CORPUSCULAR VOLUME 78.9 FL (81.0-99.0); MEAN PLATELET VOLUME 8.4 FL (7.4-10.4); PLATELET COUNT 360 /CUMM (130-400); RBC DISTRIBUTION WIDTH 16.5 % (11.5-14.5); RED BLOOD CELL CT 4.23 /CUMM (4.20-5.40); WHITE BLOOD CELL COUNT 13.3 /CUMM (4.8-10.8)
[2016-09-18 05:59] LABS: HEMATOCRIT 33.4 % (37-47)
--- NOTE | 2016-09-18 06:35 | History & Physical ---
General Information and HPI MD Statement: I have seen and personally examined ZULEYMA CASTRO and documented this H&P. The patient is a 25 year old female at [38] weeks and [6] days gestation who presented with a chief complaint of [ONSET OF LABOR]. Source of Information: patient, old records Exam Limitations: no limitations History of Present Illness: 25 YO LMP 12/21/2015 AND ABHISHEK 09/26/2016 WAS ADMITTED @ 04:55 W/ C/O LABOR. CONTRACTIONS OFF AND ON SINCE 10:00 PM, 09/17/2016, SHE WENT TO SLEEP @ 02:00 BUT AWOKE @ 03:45 WITH STRONG CONTRACTIONS. PT CAME TO THE HOSPITAL @ 04:45. MD CALLED @ 04:52 "PT IS 8 CM". PT RECEIVED ONE IV DOSE PENICILLIN. SROM OF CLEAR FLUID @ 05:00. FULLY DILATED @ 05:25 AND @ 05:32. LV MALE 7#4OZ APGARS 9/9/9, INTACT PERINEUM- DELIVERED BY RN. MD ARRIVED @ 05:34. PLACENTA SPONTANEOUSLY DELIVERED INTACT NL CONFIGURATION AND 3 VC. NO SIGNIFICANT PP UTERINE ATONY. PT REQUESTS BTL. CONSENTS ARE ON HER CHART. ISSUES FOR THIS : 1.) PT BORN "WITH A HOLE IN HER HEART" - NL ECHO AND NL HOLTER. BABY HAD NL ECHO 2.) BMI > 30 - 30 LB WT GAIN (NOW 33.8 BMI) 3.) HSV- VALTREX STARTED @ 36 WKS- NO PRODROMO OR LESIONA 4.) LT PYELONEPHRITIS (ADMITTED 09/09/2016 THROUGH 09/12/2016 - U/S SHOWED NONOBSTRUCTING LT RENAL STONE) - SEVERAL UTI IN THIS . BLOOD C/S + E COLI SENS TO AMOXACILLIN. PT IS IN MIDST OF 14 DAYS PO ANTIBIOTICS - AMOXACILLIN 500 TID. SHOULD FINISH THE PO ANTIBIOTICS @ 09/25/2016 5.) 2ND BABY DELIVERED 01/03/2017 9# 5oz) NO SHOULDER DYSTOCIA. THIS - ELEVATED 1 HR GTT BUT NL 3 HR GTT- GROWTH SCAN @ 36 WKS THIS BABY WAS 50 % 6#9oz ) 6.) ANEMIA DUE TO RECENT PYELONEPHRITIS (HGB 8.5) - HAS BEEN TAKING IRON SINCE 09/11/2016. ADMISSION HGB 10.9 Allergies/Medications Allergies: Coded Allergies: NO KNOWN ALLERGIES (08/05/16) Home Med list Amoxicillin 500 MG CAPSULE 500 MG PO TID ANTIBIOTIC, INFECTION Ferrous Sulfate 325 MG (65 MG IRON) TABLET.DR 325 MG PO BID ANEMIA Ibuprofen 800 MG TABLET 800 MG PO Q6P PRN PAIN SCALE 4-6 Ondansetron (Zofran Odt) 4 MG TAB.RAPDIS 1 TAB SL TID PRN nausea [id number] ( Vitamins) 1 TAB TAB 1 TAB PO DAILY VITAMIN SUPPORT Compliance With Home Meds: GOOD Past History steak tenderizer machine History : 5 Para: 2 Last Menstrual Period: 12/21/2015 Estimated Delivery Date: 09/26/2016 Past steak tenderizer machine History: none, uncomplicated Past Pregnancies Past Pregnancies: 1 Date of Delivery: 01/03/2015 Gestational Age: 40 Length of Labor: 10h Weight: 9#5oz Type of Delivery: vaginal Anesthesia: epidural Place of Delivery: [facility] Complications: none Past Pregnancies: 2 Date of Delivery: 01/2010 Gestational Age: 40 Length of Labor: 4 Weight: 7#13 Type of Delivery: vaginal Anesthesia: NONE Place of Delivery: [facility] Complications: NONE Medical History Blood Transfusion Hx: No Neurological: NONE EENT: NONE Cardiovascular: BORN W/ HOLE IN HER HEART NL ECHO HX NL HOLTER Respiratory: NONE Gastrointestinal: NONE Hepatic: NONE Renal: RENAL STONE RECURRENT UTI 09/09/2016 LT PYELONEPHRITIS (NONOBSTRUCTING LT RENAL STONE ON U/S) Musculoskeletal: NONE Psychiatric: NONE Endocrine: BMI 33.8 Blood Disorders: anemia, IRON DEF ALSO HEMOLYTIC ANEMIA W/ HER RECENT PYELONEPHRITIS Cancer(s): NONE PICU NURSE/Reproductive: NONE (VALACYCLOVIR DAILY SINCE 36WK), genital herpes Surgical History Pertinent Surgical History: none, history of PFO dxd at age 15. 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 Past Family/Social History Family History Relations & Conditions if any Relation not specified for: *No pertinent family history Psychosocial History Where do you live? Home Who Do You Live With? spouse, child, self Primary Language: Serbian Smoking Status: Never Smoked ETOH Use: denies use Illicit Drug Use: denies illicit drug use Review of Systems Review of Systems: NEG FOR CARDIAC PULMONARY GI COMPLAINTS Exam & Diagnostic Data Last 24 Hrs of Vital Signs/I&O 98.4 P 86 R 17 BP 128/74 P0@ 99% RA Obstetric Exam Wgt Gained During : 33 Pelvimetry: PROVEN 9# 5oz Dilation (cm): 10 Effacement (%): 100 Station: 0 Membranes: SROM Fluid: light meconium Fundal Height (cm): 38 Multiple Gestation? No Contractions: Q 2 MIN Infant #1 - FHR Baseline: 140 Category: 1 Estimated Weight: 7# 6oz Presentation: VERTEX Patient for Induction? No Physical Exam General Appearance Alert, Oriented X3, Cooperative, Moderate Distress Skin No Significant Lesion Cardiovascular Regular Rate Lungs Normal Air Movement Abdomen Normal Bowel Sounds, Soft, No Tenderness, No Hepatospenomegaly, GRAVID UTERUS NONTENDER CONTRACTIONS Q 2 MIN FHR 140'S Neurological Normal Gait, Normal Speech Extremities No Tenderness/Swelling Reproductive (FEMALE) Normal female genitalia Labs Blood Type & Rh: O+ Antibody Screen: NEG Hct/Hgb & Platelets #1: 12.2/38 PLTS 240,000 Hct/Hgb & Platelets #2: 10.9/35 PLTS 250,000 Rubella: IMM VDRL #1: N VDRL #2: N HbsAg: N HIV #1: N HIV #2 N 1 Hr P 3 Hr PG: NL 3 HR GTT Group B Strep: POS Initial Ultrasound: 02/27/2016 S=D=U/S @ 9 5/7 WKS Anatomy Ultrasound: 05/20/2016 [facility] S=D=U/S 21 4/7 NL MALE ECHO WAS WNL Ultrasound for EFW: 09/02/2016 36 4/7 WKS 50% 6#9oz Genetic Testing: NL 1ST TRIMESTER SCREEN NL MSAFP Last 24 Hrs of Labs/Vitaly: Laboratory Tests 09/18/16 0510: CBC w Diff NO MAN DIFF REQ, RBC 4.23, MCV 78.9 L, MCH 25.6 L, RDW 16.5 H, MPV 8.4, Gran % 58.9, Lymphocytes % 35.9, Monocytes % 4.1, Eosinophils % 0.8, Basophils % 0.3, Absolute Granulocytes 7.8 H, Absolute Lymphocytes 4.8 H, Absolute Monocytes 0.5, Absolute Eosinophils 0.1, Absolute Basophils 0, PUBS MCHC 32.5 L, Urinalysis LIGHT H, Urine Color YEL, Urine Clarity HAZY H, Urine pH 6.5, Ur Specific St[place] 1.010, Urine Protein NEG, Urine Ketones NEG, Urine Nitrite NEG, Urine Bilirubin NEG, Urine Urobilinogen 0.2, Ur Leukocyte Esterase TRACE H, Ur Microscopic SEDIMENT EXAMINED, Urine WBC 1-3 H, Ur Epithelial Cells MOD H, Urine Bacteria FEW H, Urine Hemoglobin NEG, Urine Glucose NEG Assessment/Plan Assessment/Plan: 25 YO LMP 12/21/2015 AND ABHISHEK 09/26/2016 WAS ADMITTED @ 04:55 W/ C/O LABOR. CONTRACTIONS OFF AND ON SINCE 10:00 PM, 09/17/2016, SHE WENT TO SLEEP @ 02:00 BUT AWOKE @ 03:45 WITH STRONG CONTRACTIONS. PT CAME TO THE HOSPITAL @ 04:45. MD CALLED @ 04:52 "PT IS 8 CM". PT RECEIVED ONE IV DOSE PENICILLIN. SROM OF CLEAR FLUID @ 05:00. FULLY DILATED @ 05:25 AND @ 05:32. LV MALE 7#4OZ APGARS 9/9/9, INTACT PERINEUM- DELIVERED BY RN. MD ARRIVED @ 05:34. PLACENTA SPONTANEOUSLY DELIVERED INTACT NL CONFIGURATION AND 3 VC. NO SIGNIFICANT PP UTERINE ATONY. PT REQUESTS BTL. CONSENTS ARE ON HER CHART PT IS NPO SINCE 9 PM LAST EVENING- PLAN FOR BTL LATER TODAY NEEDS TO COMPLETE 14 DAYS OF PO AMOXACILLIN THROUGH 09/25/2016 As Ranked By This Provider Problem List: 1. UTI (urinary tract infection) 2. Pyelonephritis affecting in third trimester 3. Precipitate labor, delivered, current hospitalization 4. Term of male 5. Group B streptococcal carriage complicating 6. Anemia affecting 7. Positive test for herpes simplex virus (HSV) antibody Core Measures/Miscellaneous Venous Thromboembolism VTE Risk Factors: Obesity, / VTE Contraindications: Active Bleeding (FALL RISK) VTE Diagnosis: No Beta Ramses Is Beta Ramses a Home Med? No If No, Why Not? N/A Antibiotics Is Patient on Antibiotics? Yes If Yes: infection (ALSO MAT GR B STR HX) Attending MD Review Statement Attending Statement Attending MD Statement: examined this patient, discussed with family, reviewed EMR data (avail), discussed w/nursing Attending Assessment/Plan: Nick MODI MD
--- NOTE | 2016-09-18 06:36 | Labor & Delivery Summary ---
Delivery Summary Vaginal Delivery: Vaginal: VERTEX SPONTANEOUS Episiotomy/Lacerations: Episiotomy/Lacerations: none Placenta: Placenta: SPONTANEOUS NL CONFIGURATION 3 VC Anesthesia: none Cord PH Value: N/A Baby's Weight: MALE 7#14 "RICHARD" Apgars - 1 Min: 9 Apgars - 5 Min: 9 Additional Comments: 25 YO LMP 12/21/2015 AND ABHISHEK 09/26/2016 WAS ADMITTED @ 04:55 W/ C/O LABOR. CONTRACTIONS OFF AND ON SINCE 10:00 PM, 09/17/2016, SHE WENT TO SLEEP @ 02:00 BUT AWOKE @ 03:45 WITH STRONG CONTRACTIONS. PT CAME TO THE HOSPITAL @ 04:45. MD CALLED @ 04:52 "PT IS 8 CM". PT RECEIVED ONE IV DOSE PENICILLIN. SROM OF CLEAR FLUID @ 05:00. FULLY DILATED @ 05:25 AND @ 05:32. LV MALE 7#4OZ APGARS 9/9/9, INTACT PERINEUM- DELIVERED BY RN. ARRIVED @ 05:34. PLACENTA SPONTANEOUSLY DELIVERED INTACT NL CONFIGURATION AND 3 VC. NO SIGNIFICANT PP UTERINE ATONY. PT REQUESTS BTL. CONSENTS ARE ON HER CHART
[2016-09-18 06:49] VITALS: BP 130/70
--- NOTE | 2016-09-18 09:55 | PN- OBGYN ---
Surgical Brief Attending Note Brief Attending Note: Para 3. s/p this AM. PPD 0. Doing well. No complaints. +Ambulating, voiding , tolerating pain and po up until NPO for surgery. Anticipating BTL this am. + appropriate lochia. Nursing. Hx reviewed. PMHx: PFO but does not require abx with dental procedures. Recent hospitalization for pyelonephritis. On amoxicillin. Anemia PSurgHx: [place] teeth Meds: Amoxicillin, PNV, Iron All: NKDA General: NAD Abdomen: soft, FF@U-1 Ext: no calf tenderness, 1+pedal edema b/l Vital Signs Date Time Temp Pulse Resp B/P Pulse O2 O2 Flow FiO2 Ox Delivery Rate 09/18 0649 130/70 Laboratory Tests 09/18/16 0510: CBC w Diff NO MAN DIFF REQ, RBC 4.23, MCV 78.9 L, MCH 25.6 L, RDW 16.5 H, MPV 8.4, Gran % 58.9, Lymphocytes % 35.9, Monocytes % 4.1, Eosinophils % 0.8, Basophils % 0.3, Absolute Granulocytes 7.8 H, Absolute Lymphocytes 4.8 H, Absolute Monocytes 0.5, Absolute Eosinophils 0.1, Absolute Basophils 0, PUBS MCHC 32.5 L, Urinalysis LIGHT H, Urine Color YEL, Urine Clarity HAZY H, Urine pH 6.5, Ur Specific [place] 1.010, Urine Protein NEG, Urine Ketones NEG, Urine Nitrite NEG, Urine Bilirubin NEG, Urine Urobilinogen 0.2, Ur Leukocyte Esterase TRACE H, Ur Microscopic SEDIMENT EXAMINED, Urine WBC 1-3 H, Ur Epithelial Cells MOD H, Urine Bacteria FEW H, Urine Hemoglobin NEG, Urine Glucose NEG Orders Procedure Date/time Status CBC WITHOUT DIFFERENTIAL 09/19 0600 Active Nothing by Mouth 09/18 B Active Pathway - chart 09/18 0550 Active Vital Signs 09/18 0550 Active Activity/Ambulation 09/18 0550 Active TRANSFER ORDERS 09/18 0545 Complete Pathway - chart 09/19 507 Active Admit to inpatient 09/19 507 Active Patient Data 09/19 507 Active Vital Signs 09/19 507 Complete OB: Monitoring 09/19 507 Complete Activity/Ambulation 09/19 507 Complete URINALYSIS 09/19 507 Complete CBC WITHOUT DIFFERENTIAL 03/09 0508 Complete TYPE & SCREEN (NOT X-MATCH) 09/19 507 Complete Childbirth Center Pt Data 09/18 UNK Active a/p PPD 0. Plan PPBTL. r/b/a reviewed including risk of bleeding, infection, injury to other organs, need for additional procedures should complication occur , failure with increased risk of ectopic gestation. Questions answered and desires to proceed.
[2016-09-18] MEDS ORDERED: IBUPROFEN800 M1 PO (10:03)
[2016-09-18] MEDS ORDERED: PERCOCET 5-3251 EACH PO (10:03)
--- NOTE | 2016-09-18 10:48 | Operative Report ---
Operative/Inv Procedure Report Surgery Date: 09/18/16 Name of Procedure: BILATERAL TUBAL LIGATION VIA MODIFIED GUY Pre-Operative Diagnosis: MULTIPARITY , DESIRES PERMANENT STERILIZATION Post-Operative Diagnosis: SAME Estimated Blood Loss: scant Surgeon/Human Projectile: NINO SOSA DO Anesthesia: general endotracheal tube IV Fluids: 700ML Drains: NA Specimens: PORTION S OF BILATERAL FALLOPIAN TUBES Complications: NONE Condition: GOOD Operative Indication: 25 YEAR OLD PPD 0 PRESENTS FOR PERMANENT STERILIZATION. S/P PRECIPITOUS THIS AM. PT COUNSELED ON R/B/A OF PROCEDURE INCLUDING ELECTIVE AND PERMANENT NATURE, RISK OF BLEEDING, INFECTION, INJURY TO OTHER ORGANS , NEED FOR ADDITIONAL PROCEDURES SHOULD COMPLICATION OCCUR, RISK OF FAILURE WITH INCREASED RISK OF ECTOPIC GESTATION SHOULD OCCUR. QUESTIONS ANSWERED AND DESIRES TO PROCEED. Operative/Procedure Note Note: PATAIENT TAKEN TO TO THE OPERATING ROOM WHERE ANESTHESIA OBTAINED WITHOUT DIFFICULTY. PT WAS PLACED IN THE DORSAL SUPINE POSITION. SHE WAS PREPPED AND DRAPED IN THE USUAL STERILE FASHION. INFRAUMBILICAL SKIN INCISION WAS MADE WITH THE SCALPEL. INCISION CARRIED DOWN TO THE FASCIA. FASCIA IN CISED WITH THE SCALPEL. PERITONEUM IDENTIFIED AND ENTERED SHARPLY WITH METZENBAUM SCISSOR. USING S RETRACTORS FOR TRACTION UTERINE FUNDUS IDENTIFIED, THEN LEFT TUBE IDENTIFIED AND CARRIED OUT TO THE FIMBRIA. THE MID-ISTHMIC PORTION IDENTIFIED AND GRASPED WITH A MORENA. IT WAS DOUBLY TIED WITH O-PLAIN. KNUCKLE OF TUBE WAS EXCISED WITH METZENBAUM. GOOD HEMOSTASIS NOTED. PROCEDURE WAS THEN REPEATED ON THE RIGHT TUBE. GOOD HEMOSTASIS NOTED. TUBE REPLACED BACK INTO THE ABDOMEN. FASCIA REAPPROXIMATED WITH O-POLYSORB. SKIN CLOSED WITH 4-0 BIOSYN. PT TOLERATED THE PROCEDURE WELL. GOOD HEMOSTASIS WAS NOTED . PT TAKEN TO THE RECOVERY AREA IN GOOD CONDITION.
[2016-09-19 06:37] LABS: ABSOLUTE BASOPHIL COUNT 0.1 /CUMM (0.0-0.2); ABSOLUTE EOSINOPHIL COUNT 0.1 /CUMM (0.0-0.7); ABSOLUTE GRANULOCYTE CT 11.1 /CUMM (1.4-6.5); ABSOLUTE LYMPH COUNT 4.9 /CUMM (1.2-3.4); ABSOLUTE MONOCYTE COUNT 0.5 /CUMM (0.10-0.60); BASOPHIL % 0.4 % (0.0-2.0); EOSINOPHIL % 0.6 % (0-5); GRANULOCYTE % 66.5 % (42.2-75.2); HEMATOCRIT 30.9 % (37-47); MEAN CORPUSCULAR HGB CONC 32.8 G/DL (33.0-37.0); MEAN CORPUSCULAR VOLUME 79.3 FL (81.0-99.0); MEAN PLATELET VOLUME 8.3 FL (7.4-10.4); PLATELET COUNT 349 /CUMM (130-400); WHITE BLOOD CELL COUNT 16.7 /CUMM (4.8-10.8)
--- NOTE | 2016-09-19 14:11 | PN- Post Delivery/GYN ---
Subjective Subjective: Doing well today - happy that she had her PP BTL Review of Systems: Neg for Cardia, Pulmonary, GI, complaints Objective Last 24 Hrs of Vital Signs/I&O Afebrile VSS Physical Exam General Appearance Alert, Oriented X3, Cooperative, No Acute Distress Skin No Significant Lesion Cardiovascular Regular Rate Lungs Normal Air Movement Abdomen Normal Bowel Sounds, Soft, No Tenderness, No Hepatospenomegaly, incision clean dry intact Uterus firm nontender 2 FB below umbilicus Neurological Normal Gait, Normal Speech Extremities No Tenderness/Swelling Reproductive (FEMALE) Normal female genitalia, avge lochia Current Medications: Current Medications Sig/Kamala Start time Last Medication Dose Route Stop Time Status Admin Acetaminophen 1,000 MG ONCE ONE 09/18 1430 DC IV 09/18 1431 Acetaminophen 650 MG Q4P PRN 09/18 06 AC PO Amoxicillin 500 MG TID 09/18 0700 AC 09/19 PO 0953 Dexamethasone 4 MG ONCE PRN 09/18 1445 AC IV Diphenhydramine HCl 25 MG ONCE PRN 09/18 1445 AC IV Docusate Sodium 100 MG BID PRN 09/18 06 AC PO Hydromorphone HCl 0.2 MG Q10MIN PRN 09/18 1430 AC IV Hydromorphone HCl 0.4 MG Q10MIN PRN 09/18 1430 AC IV Hydromorphone HCl 0.6 MG Q10MIN PRN 09/18 1430 AC IV Hydroxyzine HCl 100 MG AT BEDTIME NEED.. 09/18 06 AC PO Ibuprofen 800 MG Q6P PRN 09/18 0600 AC 09/19 PO 0809 Lactated Ringer's 1,000 ML .Q24H 09/18 1445 AC IV Lactated Ringer's 1,000 ML Q8H 09/18 1315 AC 09/18 IV 1403 Meperidine HCl 12.5 MG ONCE PRN 09/18 1445 AC IV Metoclopramide HCl 10 MG ONCE PRN 09/18 1445 AC IV Ondansetron HCl 4 MG ONCE PRN 09/18 1445 AC IV Oxycodone/ 1 TAB .STK-MED ONE 09/19 0111 DC Acetaminophen PO 09/19 0112 Oxycodone/ 1 TAB Q3P PRN 09/18 06 AC 09/19 Acetaminophen PO 0809 Trimethobenzamide HCl 200 MG ONCE PRN 09/18 1445 AC IM Last 24 Hrs of Labs/Vitaly: Laboratory Tests 09/19/16 0605: CBC w Diff NO MAN DIFF REQ, RBC 3.90 L, MCV 79.3 L, MCH 26.0 L, RDW 17.0 H, MPV 8.3, Gran % 66.5, Lymphocytes % 29.3, Monocytes % 3.2, Eosinophils % 0.6, Basophils % 0.4, Absolute Granulocytes 11.1 H, Absolute Lymphocytes 4.9 H, Absolute Monocytes 0.5, Absolute Eosinophils 0.1, Absolute Basophils 0.1, PUBS MCHC 32.8 L Assessment/Plan Assessment/Plan Stable PPD#1 POD #1 Routine PP care encourage ambulation circ permit done Problem List: 1. UTI (urinary tract infection) 2. Pyelonephritis affecting in third trimester 3. 4. Term of male 5. Group B streptococcal carriage complicating 6. Anemia affecting 7. Positive test for herpes simplex virus (HSV) antibody Attending MD Review Statement Attending Statement Attending MD Statement: examined this patient, discussed with family, reviewed EMR data (avail), discussed with nursing Attending Assessment/Plan: Nick Marmolejo MD
--- NOTE | 2016-09-20 09:56 | PN- Post Delivery/GYN ---
Subjective Subjective: Doing well ready for discharge Review of Systems: Neg foe Cardiac, Pulmonary GI complaints Objective Last 24 Hrs of Vital Signs/I&O Afebrile VSS Physical Exam General Appearance Alert, Oriented X3, Cooperative, No Acute Distress Skin No Significant Lesion Cardiovascular Regular Rate Lungs Normal Air Movement Abdomen Normal Bowel Sounds, Soft, No Tenderness, No Hepatospenomegaly, Umb incision clean, dry, intact. Fundus firm nontender, 3 FB below umbilicus Neurological Normal Gait, Normal Speech Reproductive (FEMALE) Normal female genitalia, avge lochia Current Medications: Current Medications Sig/Kamala Start time Last Medication Dose Route Stop Time Status Admin Acetaminophen 650 MG Q4P PRN 09/18 06 AC PO Amoxicillin 500 MG TID 09/18 0700 AC 09/19 PO 2229 Dexamethasone 4 MG ONCE PRN 09/18 1445 DC IV Diphenhydramine HCl 25 MG ONCE PRN 09/18 1445 DC IV Docusate Sodium 100 MG .STK-MED ONE 09/20 0100 DC PO 09/20 0101 Docusate Sodium 100 MG BID PRN 09/18 0600 AC 09/20 PO 0104 Hydromorphone HCl 0.2 MG Q10MIN PRN 09/18 1430 DC IV Hydromorphone HCl 0.4 MG Q10MIN PRN 09/18 1430 DC IV Hydromorphone HCl 0.6 MG Q10MIN PRN 09/18 1430 DC IV Hydroxyzine HCl 100 MG AT BEDTIME NEED.. 09/18 0600 AC PO Ibuprofen 800 MG .STK-MED ONE 09/19 2214 DC PO 09/19 2215 Ibuprofen 800 MG .STK-MED ONE 09/19 1530 DC PO 09/19 1531 Ibuprofen 800 MG Q6P PRN 09/18 0600 AC 09/20 PO 0847 Lactated Ringer's 1,000 ML .Q24H 09/18 1445 DC IV Lactated Ringer's 1,000 ML Q8H 09/18 1315 DC 09/18 IV 1403 Meperidine HCl 12.5 MG ONCE PRN 09/18 1445 DC IV Metoclopramide HCl 10 MG ONCE PRN 09/18 1445 DC IV Ondansetron HCl 4 MG ONCE PRN 09/18 1445 DC IV Oxycodone/ 1 TAB .STK-MED ONE 09/19 2215 DC Acetaminophen PO 09/19 2216 Oxycodone/ 1 TAB Q3P PRN 09/18 0600 AC 09/20 [place]etamin[place] PO 0847 Trimethobenzamide HCl 200 MG ONCE PRN 09/18 1445 DC IM Assessment/Plan Assessment/Plan Stable PPD #2 POD #2 ( PPBTL)' doing well- ready for discharge Plan discharge home rx given instructions given F/up @ office 2 and 6 wks Problem List: 1. Pyelonephritis affecting in third trimester 2. Precipitate labor, delivered, current hospitalization 3. Term of male 4. Group B streptococcal carriage complicating 5. Anemia affecting 6. Positive test for herpes simplex virus (HSV) antibody Attending MD Review Statement Attending Statement Attending MD Statement: examined this patient, discussed with family, reviewed EMR data (avail), discussed with nursing Attending Assessment/Plan: Nick Marmolejo MD
--- NOTE | 2016-09-29 15:35 | Discharge Summary ---
Visit Information Visit Dates Admission Date: 09/18/16 Discharge Date: 09/20/16 Hospital Course Course Attending Physician: NINO SOSA DO Primary Care Physician: PATIENT HAS NO PRIMARY CARE DR Hospital Course: 25 YEAR OLD PRESENTED TO HOSPITAL WITH LABOR PAIN AND DELIVERED PRECIPITOUSLY SHORTLY AFTER HER ARRIVAL. SHE HAD REQUESTED A PPBTL WHICH WAS PERFORMED ON PPD0. PROCEDURE WAS UNCOMPLICATED. / POSTOP COURSE WERE UNCOMPLICATED. SHE WAS DISCHARGED TO HOME ON PPD2 IN GOOD CONDITION. SHE WAS AMBULATING, VOIDING, TOLERATING PAIN AND PO. LOCHIA WAS APPROPRIATE. SHE WAS NURSING. DISCHARGE PRECAUTIONS WERE ADVISED. Complications: NONE Allergies: Coded Allergies: NO KNOWN ALLERGIES (08/05/16) Significant Procedures: BILATERAL TUBAL LIGATION VIA MODIFIED GUY TECHNIQUE. Pertinent Lab Results: Vital Signs Date Time Temp Pulse Resp B/P Pulse O2 O2 Flow FiO2 Ox Delivery Rate 09/18 0649 130/70 Disposition Summary Disposition Principal Diagnosis: TERM , DELIVERED Additional Diagnosis: REQUEST FOR PERMANENT STERILIZATION HISTORY OF PYELONEPHRITIS. Discharge Disposition: home or self care Discharge Instructions General Discharge Information Code Status: Full Code Patient's Diet: REGULAR Patient's Activity: PELVIC REST AND NO HEAVY LIFTING X 6 WEEKS Follow-Up Instructions/Appts: [facility] AT 2 AND 6 WEEKS Medications at Discharge Discharge Medications: Stop taking the following medications: Ibuprofen (Ibuprofen) 800 MG TABLET ORAL EVERY SIX HOURS NEEDED as needed for PAIN SCALE 4-6 Qty = 60 Ondansetron (Zofran Odt) 4 MG TAB.RAPDIS SUBLINGUAL THREE TIMES DAILY as needed for nausea Qty = 10 Continue taking these medications: Nleinded50 ( Vitamins) 1 TAB TAB 1 Tablet ORAL DAILY Qty = 90 Amoxicillin (Amoxicillin) 500 MG CAPSULE 500 Milligram ORAL THREE TIMES DAILY Days = 14 Comments: Last Taken:09/12/16 Time:0900 Ferrous Sulfate (Ferrous Sulfate) 325 MG (65 MG IRON) TABLET.DR 325 Milligram ORAL TWICE DAILY Qty = 90 Comments: Last Taken:09/12/16 Time:0900 Start taking the following new medications: Ibuprofen (Ibuprofen) 800 MG TABLET 800 Milligram ORAL EVERY SIX HOURS NEEDED as needed for UTERINE CRAMPING Qty = 30 No Refills Comments: Last Taken:09/20/16 Time:0845 Oxycodone HCl/Acetaminophen (Percocet 5-325 MG Tablet) 5 MG-325 MG TABLET 1 Tablet ORAL EVERY 4-6 HOURS NEEDED as needed for postop Qty = 15 No Refills Comments: Last Taken:09/20/16 Time:0845 Copies To: NINO SOSA DO
== END 2016-09-20 10:55 | DRG 767 ==
LOC: CBCO 04:37 → GNO 04:57
PROVIDERS: ADMIT Obstetrics & Gynecology
PROC: 10E0XZZ Delivery of Products of Conception, External Approach (ICD-10-PCS; principal; 2016-09-18)
PROC: 0UB70ZZ Excision of Bilateral Fallopian Tubes, Open Approach (ICD-10-PCS; 2016-09-18)
DX: O62.3 Precipitate labor (principal); O99.413 Diseases of the circulatory system complicating pregnancy, third trimester; Q21.1 Atrial septal defect; O98.52 Other viral diseases complicating childbirth; O99.02 Anemia complicating childbirth; Z3A.38 38 weeks gestation of pregnancy; Z37.0 Single live birth; Z30.2 Encounter for sterilization; B00.9 Herpesviral infection, unspecified; O99.824 Streptococcus B carrier state complicating childbirth
CPT/HCPCS: GNOS; 81001; 88302; J0131; J0595; J1885; J2210; J7120

== ENCOUNTER 2017-12-04 22:34 | Emergency (ER) | payer OTHER ==
[~2017-12-04] VITALS: Ht 172.7 cm; Wt 94.3 kg
[~2017-12-04 22:34] MED LIST changes: +CICLOPIROX30 GM TOP; +HYDROCORTISO453.6 G2 TOP; +IBUPROFEN800 M1 PO; +JUBLIA TOP; +MOBIC15 M1 PO; +PERCOCET 5-3251 EACH PO; +ZEBUTAL 50-3251 EACH PO
[2017-12-04 22:45] VITALS: BP 100/65
[2017-12-05] MEDS ORDERED: PREDNISONE20 M1 PO (14:22)
[2017-12-05] MEDS ORDERED: REGLAN10 M1 PO (14:22)
[2017-12-05] MEDS ORDERED: PERCOCET 5-3251 EACH PO (14:22)
== END 2017-12-05 00:58 | disposition admitted as inpatient to this hospital (09) ==
LOC: ERH 22:34
DX: R51 Headache (principal); R11.2 Nausea with vomiting, unspecified; Z53.21 Procedure and treatment not carried out due to patient leaving prior to being seen by health care provider
CPT/HCPCS: J0131; J2765; J2930

== ENCOUNTER 2017-12-05 06:57 | Emergency (ER) | payer OTHER ==
[~2017-12-05] VITALS: Ht 172.7 cm; Wt 92.1 kg
--- NOTE | 2017-12-05 07:26 | ED GENERAL ADULT ---
History of Present Illness General Chief Complaint: Headache Stated Complaint: BIBA PT C/C "MAJOR NICHOLSON X'S 3 DAYS" N/V Source: patient Exam Limitations: no limitations Vital Signs & Intake/Output Vital Signs & Intake/Output Vital Signs Date Time Temp Pulse Resp B/P B/P Pulse O2 O2 Flow FiO2 Mean Ox Delivery Rate 12/05 1102 99.7 64 18 95/50 100 12/05 0741 Room Air 12/05 0701 97.7 66 18 113/77 97 Allergies Coded Allergies: NO KNOWN ALLERGIES (08/05/16) Reconcile Medications Butalb/Acetaminophen/Caffeine (Zebutal 50-325-40 MG Capsule) 50 MG-325 MG-40 MG CAPSULE 1 TAB PO TID PRN HEADACHE Ciclopirox 0.77 % GEL..GRAM. 1 MARSHA TOP DAILY NAILS (Reported) Efinaconazole (Jublia) 10 % DONN.W.APPL 1 MARSHA TOP DAILY NAILS (Reported) Ferrous Sulfate 325 MG (65 MG IRON) TABLET.DR 325 MG PO BID ANEMIA Hydrocortisone (Unknown Strength) CREAM..G. (Unknown Dose) TOP DAILY ECZEMA ( Reported) apply to affected area(s) Meloxicam (Mobic) 15 MG TABLET 1 TAB PO DAILY PRN MIGRAINE Metoclopramide HCl (Reglan) 10 MG TABLET 1 TAB PO 4 TIMES/DAY PRN NAUSEA 30 minutes before meals and bedtime Oxycodone HCl/Acetaminophen (Percocet 5-325 MG Tablet) 5 MG-325 MG TABLET 1 TAB PO BID PRN HEADACHES Prednisone 20 MG TABLET 1 TAB PO BID HEADCAHES Triage Note: 27 YEAR OLD FEMALE COMPLAINS OF 3 DAYS OF FRONTAL HEADACHE,N/V/LIGHT SENSITIVITY. WAS SEEN 3 DAYS AGO AT [facility] , CAME HERE LAST PM BUT THERE WAS A LONG WAIT SO SHE LEFT. HAS BEEN TAKING MOTRIN WITH NO RELIEF Triage Nurses Notes Reviewed? yes Onset: Gradual Duration: day(s): Timing: recent history : No Patient currently breastfeeds: No HPI: 12/05/17 8 AM 27-year-old female presents to the emergency department for severe headache. She says she's had similar headaches in the past. She said that this headache started 3 days ago. It is all over her head. She admits to nausea and vomiting. No fever. She has a past medical history of PFO and polycystic ovary disease. She says she's had these headaches 4-6 times over the past year. Past History Travel History Traveled to [place] past 21 day No Medical History Any Pertinent Medical History? 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 tubal ligation Psychosocial History Services at Home None What is your primary language Hungarian Tobacco Use: Never used ETOH Use: denies use Illicit Drug Use: denies illicit drug use Family History Family History, If Any: Relation not specified for: *No pertinent family history Hx Contributory? No Review of Systems Review of Systems Constitutional: Denies: fever. EENTM: Denies: double vision. Respiratory: Denies: short of breath. Cardiovascular: Denies: chest pain. GI: Reports: vomiting. Denies: abdominal pain. Genitourinary: Reports: no symptoms. Musculoskeletal: Reports: no symptoms. Skin: Reports: no symptoms. Neurological/Psychological: Reports: see HPI. Hematologic/Endocrine: Reports: no symptoms. Immunologic/Allergic: Reports: no symptoms. Physical Exam Physical Exam General Appearance: well developed/nourished, alert, awake, anxious, moderate distress Head: atraumatic, normal appearance Eyes: Bilateral: normal appearance, PERRL, EOMI. Ears, Nose, Throat: normal ENT inspection Neck: normal inspection, supple, full range of motion Respiratory: normal breath sounds, chest non-tender, no respiratory distress Cardiovascular: regular rate/rhythm Peripheral Pulses: 4+ radial (R), 4+ radial (L) Gastrointestinal: soft, non-tender Back: normal range of motion Extremities: no edema Neurologic/Psych: no motor/sensory deficits, awake, alert, oriented x 3 Skin: intact, normal color, warm/dry Core Measures ACS in differential dx? No CVA/TIA Diagnosis: No Sepsis Present: No Sepsis Focused Exam Completed? No Progress Differential Diagnoses I considered the following diagnoses in my evaluation of the patient: [Migraine, subarachnoid hemorrhage, meningitis, stroke, Lyme disease, , hypertension, idiopathic intracranial hypertension] Plan of Care: Orders Procedure Date/time Status Heart Healthy Diet 12/05 D Active OXYGEN SETUP (GEN) 12/05 808 Active LYME TITRE 12/05 808 Active HUMAN BETA HCG SCREEN 12/05 808 Complete COMPREHENSIVE METABOLIC PANEL 12/05 808 Complete CBC WITHOUT DIFFERENTIAL 12/05 808 Complete Laboratory Tests 12/05/17 0915: Anion Gap 11, Estimated GFR > 60, BUN/Creatinine Ratio 18.8, Glucose 108 H, Calcium 9.3, Total Bilirubin 0.3, AST 14, ALT 24, Alkaline Phosphatase 50, Total Protein 7.6, Albumin 4.3, Globulin 3.3, Albumin/Globulin Ratio 1.3, Total Beta HCG NEGATIVE, CBC w Diff NO MAN DIFF REQ, RBC 4.59, MCV 83.3, MCH 28.0, MCHC 33.6, RDW 13.6, MPV 8.6, Gran % 88.3 H, Lymphocytes % 9.4 L, Monocytes % 2.0, Eosinophils % 0.1, Basophils % 0.2, Absolute Granulocytes 9.5 H, Absolute Lymphocytes 1.0 L, Absolute Monocytes 0.2, Absolute Eosinophils 0, Absolute Basophils 0, Lyme Disease Antibody Pending The patient was treated with IV fluids, labs were drawn. She was given Toradol and Phenergan. We'll obtain a CT scan of the head after the test is back. Initial ED EKG: none Departure Departure Disposition: STILL A PATIENT Condition: Stable Clinical Impression Primary Impression: Headache Referrals: Jorge Mercedes MD (PCP/Family) Departure Forms: Customer Survey General Discharge Information Prescriptions: Current Visit Scripts Prednisone 1 TAB PO BID #10 TAB Metoclopramide HCl (Reglan) 1 TAB PO 4 TIMES/DAY PRN NAUSEA #20 TAB 30 minutes before meals and bedtime Oxycodone HCl/Acetaminophen (Percocet 5-325 MG Tablet) 1 TAB PO BID PRN HEADACHES #10 TAB Comments 12/05/17 Patient was similar headaches in the past. Headache much improved. No visual disturbances funduscopic exam is normal no nuchal rigidity, CT of the head is negative. We'll discharge on Reglan, prednisone, and Percocet She will follow-up with the on-call neurology clinic this week or return to the emergency department if worse. Critical Care Note Critical Care Note Critical Care Time: non-applicable
[2017-12-05 09:32] LABS: ABSOLUTE BASOPHIL COUNT 0 /CUMM (0.0-0.2); ABSOLUTE EOSINOPHIL COUNT 0 /CUMM (0.0-0.7); ABSOLUTE GRANULOCYTE CT 9.5 /CUMM (1.4-6.5); ABSOLUTE MONOCYTE COUNT 0.2 /CUMM (0.10-0.60); BASOPHIL % 0.2 % (0.0-2.0); EOSINOPHIL % 0.1 % (0-5); HEMATOCRIT 38.3 % (37-47); MEAN CORPUSCULAR HGB CONC 33.6 G/DL (33.0-37.0); MEAN CORPUSCULAR VOLUME 83.3 FL (81.0-99.0); MEAN PLATELET VOLUME 8.6 FL (7.4-10.4); PLATELET COUNT 243 /CUMM (130-400); RBC DISTRIBUTION WIDTH 13.6 % (11.5-14.5); RED BLOOD CELL CT 4.59 /CUMM (4.20-5.40); WHITE BLOOD CELL COUNT 10.7 /CUMM (4.8-10.8)
[2017-12-05 10:13] LABS: GRANULOCYTE % 88.3 % (42.2-75.2)
--- NOTE | 2017-12-05 11:16 | CT SCAN REPORT ---
EXAMINATION: CT HEAD WITHOUT CONTRAST CLINICAL INFORMATION: 27-year-old female presented with headache. COMPARISON: CT of the head done on 07/10/2008. TECHNIQUE: Contiguous axial imaging was performed from the skull base to vertex without intravenous administration of contrast. DLP: 557.0 mGy-cm FINDINGS: There is no evidence of acute intracranial hemorrhage or territorial infarction. No abnormal mass effect or midline shift is seen. Beckahm to white matter differentiation is well preserved. No extra-axial fluid collections are identified. The ventricles are normal in size. There is no abnormal attenuation within the brain parenchyma. The osseous structures and soft tissues are normal. Bilateral mastoid air cells are well aerated and are unremarkable. Lobulated soft tissue opacities are noted within the sphenoid sinus, shows interval progression, consistent with sphenoidal sinusitis with superimposed mucous retention cysts and/or polyp. The remainder of the visualized paranasal sinuses unremarkable. IMPRESSION: No acute intracranial pathology. Sphenoidal sinusitis with superimposed mucous retention cysts and/or polyps, some interval progression since 07/10/2008.
[2017-12-05] MEDS ORDERED: PERCOCET 5-3251 EACH PO (14:22)
[2017-12-05] MEDS ORDERED: REGLAN10 M1 PO (14:22)
[2017-12-05] MEDS ORDERED: PREDNISONE20 M1 PO (14:22)
[2017-12-05 14:46] VITALS: BP 110/62
== END 2017-12-05 14:44 ==
LOC: ERH 06:57
PROVIDERS: Emergency Medicine
DX: R51 Headache (principal); R11.2 Nausea with vomiting, unspecified
CPT/HCPCS: 86618; 96374; 96375